=== PATIENT | female | born 1960 | race Caucasian/White ===

== ENCOUNTER 2018-02-19 14:25 | Emergency (ER) | payer OTHER ==
[~2018-02-19] VITALS: Ht 162.6 cm; Wt 86.2 kg
[~2018-02-19 14:25] MED LIST: AMOX1TAB12 PO; CIPRO500 MG PO; ELAVIL; HYZAAR 50-12.1 UDTAB; KETO10TA2 PO; LEVOXYL150 MCG; MECLIZINE HCL25 MG PO; MEDROLPACK PO; NEURONTIN800 MG PO; ORPH100T PO; PERCOCET 5/321 UDTAB PO; PERCOCET 5/3251 TAB PO; SYNTHROID88 MCG; TAMS0.4C PO; TUSNEL LIQUID178 ML PO
== END 2018-02-19 17:29 | disposition home or self-care (01) ==
LOC: ER 14:25
DX: R42 Dizziness and giddiness (principal); T39.2X5A Adverse effect of pyrazolone derivatives, initial encounter; Y92.89 Other specified places as the place of occurrence of the external cause

== ENCOUNTER 2018-02-23 17:37 | Emergency (ER) | payer OTHER ==
[~2018-02-23] VITALS: Ht 162.6 cm; Wt 86.2 kg
[2018-02-23] MEDS ORDERED: SKELAXIN800 MG PO (20:03)
[2018-02-23] MEDS ORDERED: CELEBREX100 MG PO (20:03)
== END 2018-02-23 20:08 | disposition home or self-care (01) ==
LOC: ER 17:37
DX: M54.5 Low back pain (principal)

== ENCOUNTER 2018-06-09 12:35 | Emergency (ER) | payer OTHER ==
[~2018-06-09] VITALS: Ht 162.6 cm; Wt 90.7 kg
[~2018-06-09 12:35] MED LIST changes: +CELEBREX100 MG PO; +SKELAXIN800 MG PO
[2018-06-09] MEDS ORDERED: MEDROLPACK PO (16:35)
[2018-06-09] MEDS ORDERED: KETO10TA2 PO (16:35)
[2018-06-09] MEDS ORDERED: TESSALON PERLE100 M1 PO (16:35)
[2018-06-09] MEDS ORDERED: LEVALBUTER1.25 MG/3 IH (16:35)
== END 2018-06-09 17:23 | disposition home or self-care (01) ==
LOC: ER 12:35
DX: J45.998 Other asthma (principal)

== ENCOUNTER 2018-08-06 11:00 | Emergency (ER) | payer OTHER ==
[~2018-08-06] VITALS: Ht 162.6 cm; Wt 86.2 kg
[~2018-08-06 11:00] MED LIST changes: +LEVALBUTER1.25 MG/3 IH; +TESSALON PERLE100 M1 PO
== END 2018-08-06 16:30 | disposition home or self-care (01) ==
LOC: ER 11:00
DX: J40 Bronchitis, not specified as acute or chronic (principal); J10.1 Influenza due to other identified influenza virus with other respiratory manifestations

== ENCOUNTER 2018-08-29 15:19 | Emergency (ER) | payer OTHER ==
[~2018-08-29] VITALS: Ht 162.6 cm; Wt 86.2 kg
== END 2018-08-29 18:17 | disposition home or self-care (01) ==
LOC: ER 15:19
DX: J06.9 Acute upper respiratory infection, unspecified (principal); N64.59 Other signs and symptoms in breast

== ENCOUNTER 2018-10-17 04:54 | Emergency (ER) | payer OTHER ==
[~2018-10-17] VITALS: Ht 162.6 cm; Wt 88.5 kg
== END 2018-10-17 13:59 | disposition home or self-care (01) ==
LOC: ER 04:54
DX: M54.6 Pain in thoracic spine (principal)

== ENCOUNTER 2018-11-04 18:54 | Emergency (ER) | payer OTHER ==
[~2018-11-04] VITALS: Ht 162.6 cm; Wt 86.2 kg
== END 2018-11-05 02:13 | disposition home or self-care (01) ==
LOC: ER 18:54 → CPU-OBS 19:22 → ER 19:22
DX: R07.89 Other chest pain (principal)
CPT/HCPCS: G0378; G0379; 93005

== ENCOUNTER 2018-11-06 16:50 | Emergency (ER) | payer OTHER ==
[~2018-11-06] VITALS: Ht 162.6 cm; Wt 86.2 kg
== END 2018-11-06 19:29 | disposition home or self-care (01) ==
LOC: ER 16:50
DX: R07.89 Other chest pain (principal); M94.0 Chondrocostal junction syndrome [Tietze]

== ENCOUNTER 2019-04-24 09:35 | Emergency (ER) | payer OTHER ==
[~2019-04-24] VITALS: Ht 157.5 cm; Wt 86.2 kg
== END 2019-04-24 13:21 | disposition home or self-care (01) ==
LOC: ER 09:35
DX: B34.9 Viral infection, unspecified (principal); M54.89 Other dorsalgia

== ENCOUNTER 2019-07-21 08:23 | Emergency (ER) | payer OTHER ==
[~2019-07-21] VITALS: Ht 175.3 cm; Wt 86.2 kg
[2019-07-21] MEDS ORDERED: FORTAMET500 MG (08:29)
== END 2019-07-21 12:24 | disposition home or self-care (01) ==
LOC: ER 08:23
DX: S13.4XXA Sprain of ligaments of cervical spine, initial encounter (principal); M62.838 Other muscle spasm; V49.9XXA Car occupant (driver) (passenger) injured in unspecified traffic accident, initial encounter; Y93.89 Activity, other specified; Y92.488 Other paved roadways as the place of occurrence of the external cause; Y99.8 Other external cause status

== ENCOUNTER 2020-04-04 15:21 | Emergency (ER) | payer OTHER ==
[~2020-04-04] VITALS: Ht 162.6 cm; Wt 97.5 kg
[~2020-04-04 15:21] MED LIST changes: +FORTAMET500 MG
[2020-04-05] MEDS ORDERED: ZITHROMAX500 MG PO (00:45)
[2020-04-05] MEDS ORDERED: ALLEGRA ALLERG180 MG PO (00:45)
[2020-04-05] MEDS ORDERED: TUSNEL LIQUID178 ML PO (00:45)
== END 2020-04-05 01:36 | disposition home or self-care (01) ==
LOC: ER 15:21
DX: B34.9 Viral infection, unspecified (principal); Z20.828 Contact with and (suspected) exposure to other viral communicable diseases

== ENCOUNTER 2021-02-02 14:23 | Emergency (ER) | payer OTHER ==
[~2021-02-02] VITALS: Ht 162.6 cm; Wt 86.2 kg
[~2021-02-02 14:23] MED LIST changes: +ALLEGRA ALLERG180 MG PO; +ZITHROMAX500 MG PO
== END 2021-02-02 18:45 | disposition home or self-care (01) ==
LOC: ER 14:23
DX: L03.012 Cellulitis of left finger (principal); S61.22 Laceration with foreign body of finger without damage to nail; W45.8XXD Other foreign body or object entering through skin, subsequent encounter

== ENCOUNTER 2021-03-06 06:41 | Emergency (ER) | payer OTHER ==
[~2021-03-06] VITALS: Ht 162.6 cm; Wt 88.9 kg
[2021-03-06] MEDS ORDERED: NORFLEX100MG PO (12:36)
[2021-03-06] MEDS ORDERED: LEVOFLOXACIN500 MG PO (12:36)
[2021-03-06] MEDS ORDERED: TESSALON PERLE100 M1 PO (12:36)
== END 2021-03-06 13:43 | disposition home or self-care (01) ==
LOC: ER 06:41
DX: B34.9 Viral infection, unspecified (principal); B96.0 Mycoplasma pneumoniae [M. pneumoniae] as the cause of diseases classified elsewhere; Z11.52 Encounter for screening for COVID-19

== ENCOUNTER 2021-06-07 16:35 | Emergency (ER) | payer OTHER ==
[~2021-06-07] VITALS: Ht 162.6 cm; Wt 86.2 kg
[~2021-06-07 16:35] MED LIST changes: +LEVOFLOXACIN500 MG PO; +NORFLEX100MG PO
[2021-06-07] MEDS ORDERED: KETO10TA2 PO (19:01)
[2021-06-07] MEDS ORDERED: NORFLEX100MG PO (19:01)
== END 2021-06-07 19:08 | disposition home or self-care (01) ==
LOC: ER 16:35
DX: S20.222A Contusion of left back wall of thorax, initial encounter (principal); S40.012A Contusion of left shoulder, initial encounter; M54.6 Pain in thoracic spine; W01.198A Fall on same level from slipping, tripping and stumbling with subsequent striking against other object, initial encounter; Y93.01 Activity, walking, marching and hiking; Y92.018 Other place in single-family (private) house as the place of occurrence of the external cause; Y99.8 Other external cause status

== ENCOUNTER 2021-12-08 06:22 | Emergency (ER) | payer OTHER ==
[~2021-12-08] VITALS: Ht 162.6 cm; Wt 86.2 kg
== END 2021-12-08 13:37 | disposition home or self-care (01) ==
LOC: ER 06:22
DX: R05.9 Cough, unspecified (principal); I10 Essential (primary) hypertension; E11.9 Type 2 diabetes mellitus without complications; Z79.84 Long term (current) use of oral hypoglycemic drugs; Z20.822 Contact with and (suspected) exposure to COVID-19

== ENCOUNTER 2022-04-05 09:53 | Inpatient (IN) | payer OTHER ==
[~2022-04-05] VITALS: Ht 162.6 cm; Wt 86.2 kg
[2022-04-05] MEDS ORDERED: ATORVASTATIN CA40 MG PO (10:38)
[2022-04-05] MEDS ORDERED: PANTOPRAZOLE SO40 MG PO (10:39)
[2022-04-05] MEDS ORDERED: PERCOCET 5-3251 EACH (10:39)
--- NOTE | 2022-04-05 10:39 | NUR ---
PTE REFIERE DOLOR EN EL CUERPO DESDE HACE VARIOS JOHNSON Y DOLOR DE BRANDY.
--- NOTE | 2022-04-05 11:27 | NUR ---
FEMINA DE 61 Y/O ES EVALUADA POR LA GERALDINE. KERN EL CUAL EMITE ORDEN MEDICA, SE EJECUTA ORDEN MEDICA EN HECTOR TOTALIDAD, SE IMKE ORIENTACION A PACIENTE SOBRE HECTOR TRATAMIENTO Y VERBALIZA ENTENDER Y ACEPTA. PENDIENTE A RESULTADOS PARA REEVALUACION MEDICA.
--- NOTE | 2022-04-05 15:06 | NUR ---
PACIENTE FEMENINA DE 61Y/O ES REEVALUADAPORLA .KERN, SE EJECUTA ORDEN MEDICA Y SE UBICA EN OBS #6, SE MARLO MUESTRAS DE CULTIVOS DE [place] Y SE ENTREGA MUESTRA PARA COLECTAR U/C. PENDIENTE A CONSULTA CON MEDICINA INTERNA.
[2022-04-07] MEDS ORDERED: AMITRIPTYLINE100 MG (10:43)
[2022-04-07] MEDS ORDERED: LOSARTAN POTAS100 MG (10:44)
[2022-04-07] MEDS ORDERED: OMEPRAZOLE40 MG (10:44)
[2022-04-07] MEDS ORDERED: NAPROXEN500 MG (10:44)
[2022-04-07] MEDS ORDERED: FAMOTIDINE40 MG (10:44)
[2022-04-07] MEDS ORDERED: CLOTRIMAZOLE-BE15 G1 (10:44)
== END 2022-04-08 20:11 | disposition home or self-care (01) | DRG 684 ==
LOC: ER 09:53 → MEDJ 04-06 00:04 → MEDI 04-07 16:56
PROVIDERS: ADMIT Internal Medicine; ATTEND Internal Medicine
DX: N17.8 Other acute kidney failure (principal); E86.0 Dehydration; I10 Essential (primary) hypertension; E03.8 Other specified hypothyroidism; E66.01 Morbid (severe) obesity due to excess calories; E87.8 Other disorders of electrolyte and fluid balance, not elsewhere classified; Z20.822 Contact with and (suspected) exposure to COVID-19; E11.9 Type 2 diabetes mellitus without complications; Z79.84 Long term (current) use of oral hypoglycemic drugs; G43.909 Migraine, unspecified, not intractable, without status migrainosus

== ENCOUNTER 2022-05-25 08:04 | Inpatient (IN) | payer OTHER ==
[~2022-05-25] VITALS: Ht 162.6 cm; Wt 113.4 kg
[~2022-05-25 08:04] MED LIST changes: +AMITRIPTYLINE100 MG; +ATORVASTATIN CA40 MG PO; +CLOTRIMAZOLE-BE15 G1; +FAMOTIDINE40 MG; +LOSARTAN POTAS100 MG; +NAPROXEN500 MG; +OMEPRAZOLE40 MG; +PANTOPRAZOLE SO40 MG PO; +PERCOCET 5-3251 EACH
[2022-05-25] MEDS ORDERED: PEPCID AC20 MG PO (08:23)
[2022-05-25] MEDS ORDERED: LEVOXYL150 MCG PO (08:25)
--- NOTE | 2022-05-25 08:27 | NUR ---
PTE SE RECIBE AMBULANDO, ALERTA Y ORIENTADA X 3. PTE VERBALIZA TENER FATIGA, TOS CON FLEMA Y DOLOR EN LA ESPALDA BAJA LADO DERECHO.
--- NOTE | 2022-05-25 08:52 | NUR ---
PTE CON BONNIEO
--- NOTE | 2022-05-25 09:11 | NUR ---
PACIENTE FEMENINA ALERTA Y ORIENTADA X3, SE COLOCA EN GUERRERO #1 CON BARRANDAS ELEVADAS. SE COLOCA EN MONITOR CARDIACO Y OXIMETRIA DE PULSO. SE LE MARLO LAS MUETRAS, SE CANALIZA EN BRAZO JANES Y SE LE COLOCA ANGIO #20 EN BRAZO JANES CON S/L PATENTE JEREMIAH DE EDEMA Y ENROJECIMIENTO, ELICEO LAS ORDENES MEDICAS. SE OBSERVA POR CAMBIOS.
--- NOTE | 2022-05-25 14:37 | NUR ---
VILLEDA ORDENA MEDICAMETOS PARA ESTUDIO DE CT IV. SE PREP[VANIA MEDICAMENTO Y RN LONGORIA ADMINISTRA MEDICAMENTO ELICEO ORDEN MEDICA UTILIZANDO MEDIDAS ASEPTICAS.
--- NOTE | 2022-05-25 15:47 | NUR ---
SE RECIBE PTE FEMENINA ALERTA Y ORIENTADA X3,CONECTADA A MONITOR CARDIACO JEANNA Y OXIMETRIA CONTINUA,LLEGA DE SER REALIZADO CT,SE REALIZAN S/V, SE MANTIENE CON H/L PATENTE AREA JEREMIAH DE EDEMA Y ENROJECIMIENTO,SE REALIZA DXT(103),SE MANTIENE A PTE EN VIGI;LANCIA JEANNA POR CAMBIOS.
== END 2022-06-01 20:05 | disposition home or self-care (01) | DRG 177 ==
LOC: ER 08:04 → MEDI 18:24 → MEDJ 05-26 14:27
PROVIDERS: ADMIT Internal Medicine; ATTEND Internal Medicine
PROC: BW24YZZ Computerized Tomography (CT Scan) of Chest and Abdomen using Other Contrast (ICD-10-PCS; principal; 2022-05-26)
PROC: 4A12X4Z Monitoring of Cardiac Electrical Activity, External Approach (ICD-10-PCS; 2022-05-26)
PROC: 5A09357 Assistance with Respiratory Ventilation, Less than 24 Consecutive Hours, Continuous Positive Airway Pressure (ICD-10-PCS; 2022-05-31)
DX: J15.211 Pneumonia due to Methicillin susceptible Staphylococcus aureus (principal); J96.02 Acute respiratory failure with hypercapnia; J44.0 Chronic obstructive pulmonary disease with (acute) lower respiratory infection; J67.9 Hypersensitivity pneumonitis due to unspecified organic dust; G47.33 Obstructive sleep apnea (adult) (pediatric); E11.9 Type 2 diabetes mellitus without complications; Z79.4 Long term (current) use of insulin; E03.9 Hypothyroidism, unspecified; E66.01 Morbid (severe) obesity due to excess calories; Z20.822 Contact with and (suspected) exposure to COVID-19; F17.200 Nicotine dependence, unspecified, uncomplicated

== ENCOUNTER 2023-03-12 10:38 | Emergency (ER) | payer OTHER ==
[~2023-03-12] VITALS: Ht 157.5 cm; Wt 86.2 kg
[~2023-03-12 10:38] MED LIST changes: +LEVOXYL150 MCG PO; +PEPCID AC20 MG PO
[2023-03-12] MEDS ORDERED: BUTALB-ACETAMI1 EAC2 PO (11:30)
[2023-03-12] MEDS ORDERED: ADVIL DUAL ACT1 EACH PO (16:28)
[2023-03-12] MEDS ORDERED: MEDROLPACK PO (16:28)
== END 2023-03-12 17:05 | disposition home or self-care (01) ==
LOC: ER 10:38
DX: M54.89 Other dorsalgia (principal); M19.90 Unspecified osteoarthritis, unspecified site; J44.9 Chronic obstructive pulmonary disease, unspecified

== ENCOUNTER 2023-04-29 06:37 | Emergency (ER) | payer OTHER ==
[~2023-04-29] VITALS: Ht 162.6 cm; Wt 90.3 kg
[~2023-04-29 06:37] MED LIST changes: +ADVIL DUAL ACT1 EACH PO; +BUTALB-ACETAMI1 EAC2 PO
== END 2023-04-29 12:17 | disposition home or self-care (01) ==
LOC: ER 06:37
PROVIDERS: General Practice
DX: M62.838 Other muscle spasm (principal); R51.9 Headache, unspecified; I10 Essential (primary) hypertension; E03.8 Other specified hypothyroidism; E11.9 Type 2 diabetes mellitus without complications; Z79.84 Long term (current) use of oral hypoglycemic drugs
CPT/HCPCS: 36415; 72040; 72100; 96365; 96372; 99283; J1100; J1885

== ENCOUNTER 2024-05-09 09:39 | Emergency (ER) | payer OTHER ==
[~2024-05-09] VITALS: Ht 162.6 cm; Wt 96.2 kg
[2024-05-09] MEDS ORDERED: KETOROLAC TROMETHAMINE 60 MG VIAL IM STA (10:37)
[2024-05-09] MEDS ORDERED: KETOROLAC TROMETHAMINE 60 MG VIAL IM ONE ×3 (10:43→15:15)
[2024-05-09 11:01] LABS: HEMATOCRIT 37.5 % (36.0-45.00); HEMOGLOBIN 12.6 g/dL (12.0-15.00); MEAN CELL VOLUME 88.2 fL (80.00-100.00); MEAN CORPUSCULAR HEMOGLOBIN 29.7 pg (27.00-32.0); MEAN CORPUSCULAR HGB CONC 33.7 g/dl (32.0-36.0); PLATELET COUNT 254 K/uL (150-450); RED BLOOD COUNT 4.25 M/uL (4.00-6.00); RED CELL DISTRIBUTION WIDTH 12.9 % (11.5-14.5)
[2024-05-09 11:20] LABS: PH,URINE 5.5 (5.0-8.0); URINE APPEARANCE Clear; URINE BILIRRUBIN Negative (NEGATIVE); URINE BLOOD Negative; URINE COLOR Yellow; URINE GLUCOSE Negative (NEGATIVE); URINE KETONE Negative (NEGATIVE); URINE LEUKOCYTE Moderate; URINE NITRATE Negative; URINE PROTEIN Trace (NEGATIVE)
[2024-05-09 11:21] LABS: URINE EPITHELIAL CELLS 40.4 uL (0.0-38.8); URINE RBC 9.7 uL (0.0-20.8); URINE WBC 80.6 uL (0.0-23.2)
[2024-05-09 11:42] LABS: URINE CAST 0.45 uL (0.0-1.40)
[2024-05-09 12:35] LABS: ALBUMIN 3.5 gm/dL (3.4-5.0); ALKALINE PHOSPHATASE 128 U/L (50-136); ALT/SGPT 45 U/L (12-78); ANION GAP 5 (10.0-20.0); AST/SGOT 32 U/L (15-37); BILIRUBIN TOTAL 0.28 mg/dL (0.3-1.2); BILIRUBIN,CONJUGATED < 0.10 mg/dL (0.0-0.2); BILIRUBIN,UNCONJUGATED 0.18 mg/dL (0.0-0.6); BLOOD UREA NITROGEN 24 mg/dL (7-18); BUN CREA RATIO 32 (7.0-25.0); CALCIUM 9.4 mg/dL (8.5-10.1); CARBON DIOXIDE 35 mEq/L (21-32); CHLORIDE 106 mmol/L (98-107); CREATININE SERUM 0.75 mg/dL (0.55-1.02); GFR 78.05; GLUCOSE FASTING 67 mg/dL (65-100); OSMOLALITY SERUM 285 MOSM/KG (275-295); POTASSIUM 3.83 mEq/L (3.5-5.1); SODIUM 142 mmol/L (136-145); TOTAL PROTEIN 8.2 gm/dL (6.4-8.2)
== END 2024-05-09 15:18 | disposition home or self-care (01) ==
LOC: ER 09:40
PROVIDERS: General Practice
DX: N20.0 Calculus of kidney (principal); E03.8 Other specified hypothyroidism; E11.9 Type 2 diabetes mellitus without complications; I88.8 Other nonspecific lymphadenitis
CPT/HCPCS: 36415; 96372; 99284; J1885

== ENCOUNTER 2024-05-14 07:31 | Emergency (ER) | payer OTHER ==
[~2024-05-14] VITALS: Ht 162.6 cm; Wt 95.7 kg
[2024-05-14] MEDS ORDERED: TAMSULOSIN HCL 0.4 MG CAP PO ONE ×2 (08:30→08:45)
[2024-05-14] MEDS ORDERED: KETOROLAC TROMETHAMINE 60 MG VIAL IM ONE ×2 (08:30→08:45)
== END 2024-05-14 09:10 | disposition home or self-care (01) ==
LOC: ER 07:32
DX: M54.50 Low back pain, unspecified (principal); E03.8 Other specified hypothyroidism; E78.00 Pure hypercholesterolemia, unspecified
CPT/HCPCS: 96372; 99282; J1885

== ENCOUNTER 2024-05-25 06:35 | Emergency (ER) | payer OTHER ==
[~2024-05-25] VITALS: Ht 162.6 cm; Wt 95.3 kg
[2024-05-25] MEDS ORDERED: TRIAMCINOLONE ACETONIDE 40 MG/ML VIAL IJ STA (08:21)
[2024-05-25] MEDS ORDERED: KETOROLAC TROMETHAMINE 60 MG VIAL IM STA (08:22)
[2024-05-25] MEDS ORDERED: KETOROLAC TROMETHAMINE 60 MG VIAL IM ONE (08:27)
[2024-05-25] MEDS ORDERED: TRIAMCINOLONE ACETONIDE 40 MG/ML VIAL ONE (08:28)
[2024-05-25] MEDS ORDERED: LIDOCAINE HCL 1% 10ML VIAL ONE (08:30)
[2024-05-25 08:52] LABS: HEMATOCRIT 34.8 % (36.0-45.00); HEMOGLOBIN 11.8 g/dL (12.0-15.00); MEAN CELL VOLUME 86.1 fL (80.00-100.00); MEAN CORPUSCULAR HEMOGLOBIN 29.2 pg (27.00-32.0); MEAN CORPUSCULAR HGB CONC 33.9 g/dl (32.0-36.0); PLATELET COUNT 281 K/uL (150-450); RED BLOOD COUNT 4.04 M/uL (4.00-6.00); RED CELL DISTRIBUTION WIDTH 13.4 % (11.5-14.5)
[2024-05-25] MEDS ORDERED: POVIDONE-IODINE 118 ML BOTT TOP ONE (09:02)
== END 2024-05-25 10:30 | disposition home or self-care (01) ==
LOC: ER 06:36
PROVIDERS: General Practice
DX: M77.8 Other enthesopathies, not elsewhere classified (principal); N23 Unspecified renal colic; I10 Essential (primary) hypertension
CPT/HCPCS: 36415; 73020; 96365; 99283; J1885

== ENCOUNTER 2024-06-15 07:40 | Emergency (ER) | payer OTHER ==
[~2024-06-15] VITALS: Ht 162.6 cm; Wt 94.3 kg
[2024-06-15] MEDS ORDERED: KETOROLAC TROMETHAMINE 60 MG VIAL IM STA (08:25)
[2024-06-15 09:52] LABS: HEMATOCRIT 36.5 % (36.0-45.00); HEMOGLOBIN 12.2 g/dL (12.0-15.00); MEAN CELL VOLUME 89.5 fL (80.00-100.00); MEAN CORPUSCULAR HEMOGLOBIN 29.9 pg (27.00-32.0); MEAN CORPUSCULAR HGB CONC 33.4 g/dl (32.0-36.0); PLATELET COUNT 259 K/uL (150-450); RED BLOOD COUNT 4.08 M/uL (4.00-6.00); RED CELL DISTRIBUTION WIDTH 13.2 % (11.5-14.5)
[2024-06-15 09:58] LABS: CALCIUM 9.2 mg/dL (8.5-10.1); CREATININE SERUM 0.96 mg/dL (0.55-1.02); GFR 58.7; POTASSIUM 3.45 mEq/L (3.5-5.1)
[2024-06-15 12:58] LABS: PH,URINE 5.5 (5.0-8.0); URINE APPEARANCE Cloudy; URINE BILIRRUBIN Small (NEGATIVE); URINE BLOOD Negative; URINE COLOR Dark Yellow; URINE GLUCOSE Negative (NEGATIVE); URINE KETONE 15 (NEGATIVE); URINE LEUKOCYTE Small; URINE NITRATE Negative; URINE PROTEIN 30 (NEGATIVE)
[2024-06-15 13:02] LABS: URINE EPITHELIAL CELLS 59.8 uL (0.0-38.8); URINE RBC 24.8 uL (0.0-20.8); URINE WBC 95.5 uL (0.0-23.2)
[2024-06-15 13:27] LABS: URINE CAST 0.61 uL (0.0-1.40)
[2024-06-15 13:28] LABS: URINE CRYSTALS MANY /HPF
[2024-06-15 13:29] LABS: URINE MUCUS HEAVY
== END 2024-06-15 15:43 | disposition home or self-care (01) ==
LOC: ER 07:40
PROVIDERS: General Practice
DX: M54.9 Dorsalgia, unspecified (principal); I10 Essential (primary) hypertension; N20.0 Calculus of kidney
CPT/HCPCS: 36415; 74176; 96372; 99284; J1885

== ENCOUNTER 2024-11-08 10:29 | Emergency (ER) | payer OTHER ==
[~2024-11-08] VITALS: Ht 162.6 cm; Wt 90.7 kg
[~2024-11-08 10:29] MED LIST changes: +DICLOFENAC POTA50 MG PO; +VOLTAREN ARTHRI20 GM TOP
[2024-11-08 10:52] VITALS: BP 103/62; O2SAT 98
[2024-11-08] MEDS ORDERED: OZEMPIC2 MG/0.75 SQ (10:56)
[2024-11-08] MEDS ORDERED: 0.9 % SODIUM CHLORIDE 1,000 ML IV SCH (11:30)
[2024-11-08] MEDS ORDERED: TAMSULOSIN HCL 0.4 MG CAP PO ONE (11:30)
[2024-11-08] MEDS ORDERED: KETOROLAC TROMETHAMINE 30 MG VIAL IV ONE (11:30)
[2024-11-08 11:54] LABS: HEMATOCRIT 35.8 % (36.0-45.00); MEAN CELL VOLUME 88.8 fL (80.00-100.00); MEAN CORPUSCULAR HEMOGLOBIN 29.8 pg (27.00-32.0); MEAN CORPUSCULAR HGB CONC 33.6 g/dl (32.0-36.0); PLATELET COUNT 251 K/uL (150-450); RED BLOOD COUNT 4.03 M/uL (4.00-6.00); RED CELL DISTRIBUTION WIDTH 13.2 % (11.5-14.5)
[2024-11-08 14:25] LABS: PH,URINE 5.5 (5.0-8.0); URINE APPEARANCE Cloudy; URINE BILIRRUBIN Small (NEGATIVE); URINE BLOOD Negative; URINE COLOR Dark Yellow; URINE GLUCOSE Negative (NEGATIVE); URINE KETONE Trace (NEGATIVE); URINE LEUKOCYTE Moderate; URINE NITRATE Negative; URINE PROTEIN Trace (NEGATIVE)
[2024-11-08 14:44] LABS: URINE RBC 105.1 uL (0.0-20.8); URINE WBC 22.7 uL (0.0-23.2)
[2024-11-08 15:02] LABS: URINE CAST 0.73 uL (0.0-1.40)
[2024-11-08 15:03] LABS: URINE CRYSTALS MANY /HPF; URINE MUCUS MODERATE
[2024-11-08] MEDS ORDERED: MORPHINE SULFATE 4 MG/ML VIAL IV ONE (16:00)
== END 2024-11-08 16:51 | disposition home or self-care (01) ==
LOC: ER 10:32
PROVIDERS: Emergency Medicine
DX: R10.9 Unspecified abdominal pain (principal); I10 Essential (primary) hypertension; E11.9 Type 2 diabetes mellitus without complications; Z79.4 Long term (current) use of insulin; N20.0 Calculus of kidney
CPT/HCPCS: 36415; 74176; 96365; 96366; 99284; J1885; J2270; J7030

== ENCOUNTER 2025-04-15 11:35 | Emergency (ER) | payer OTHER ==
[~2025-04-15] VITALS: Ht 162.6 cm; Wt 79.8 kg
[~2025-04-15 11:35] MED LIST changes: +OZEMPIC2 MG/0.75 SQ
[2025-04-15 12:06] VITALS: BP 99/68
[2025-04-15] MEDS ORDERED: KETOROLAC TROMETHAMINE 60 MG VIAL IM ONE (13:00)
[2025-04-15 14:24] VITALS: O2SAT 100
== END 2025-04-15 14:25 | disposition home or self-care (01) ==
LOC: ER 11:35
DX: M25.532 Pain in left wrist (principal); M25.531 Pain in right wrist; E03.8 Other specified hypothyroidism; I10 Essential (primary) hypertension

== ENCOUNTER → 2025-06-22 | Emergency (ER) | payer OTHER ==
[~2025-06-22] VITALS: Ht 162.6 cm; Wt 85.3 kg
[~2025-06-22] MED LIST changes: +8HR ARTHRITIS650 M1 PO; +ACETAMINOPHEN 500 MG GEL..CAP PO ONE; +DEXAMETHASONE SODIUM PHOSPHATE 4 MG/ML VIAL IM ONE; +DEXAMETHASONE SODIUM PHOSPHATE 4 MG/ML VIAL ONE; +KETOROLAC TROMETHAMINE 60 MG VIAL IM ONE; +OSEL75CA PO
[2025-06-22 14:24] LABS: BASO % 0.5 % (0.1-1.2); EOS # 0.10 (0.04-0.54); EOS % 1.3 % (0.7-7.0); LYMPH # 2.26 (1.18-3.74); LYMPH % 28.8 % (19.3-53.1); MEAN PLATELET VOLUME 9.00 fl (9.4-12.4); MONO # 0.59 (0.24-0.82); MONO % 7.5 % (4.7-12.5); NEUT # 4.83 (1.56-6.13); NEUT % 61.6 % (34.0-71.1); RED CELL DISTRIBUTION WIDTH 12.4 % (11.6-14.4)
[2025-06-22 14:27] LABS: URINE APPEARANCE Cloudy; URINE BILIRRUBIN Negative (NEGATIVE); URINE BLOOD Negative; URINE COLOR Yellow; URINE GLUCOSE Negative (NEGATIVE); URINE KETONE Trace (NEGATIVE); URINE LEUKOCYTE Moderate; URINE NITRATE Negative; URINE PROTEIN Negative (NEGATIVE); URINE UROBILINOGEN 0.2 E.U./dl
[2025-06-22 14:32] LABS: URINE BACTERIA 1437.4 uL (0.0-1933); URINE EPITHELIAL CELLS 82.4 uL (0.0-38.8); URINE RBC 14.3 uL (0.0-20.8); URINE WBC 141.6 uL (0.0-23.2)
[2025-06-22 14:40] LABS: COVID-19 AG NEGATIVE (NEGATIVE)
[2025-06-22 15:02] LABS: ALT/SGPT 33.0 U/L (12-78); AST/SGOT 21.0 U/L (15-37); BILIRUBIN TOTAL 0.2 mg/dL (0.3-1.2); BUN CREA RATIO 29.0 (7.0-25.0); CREATININE SERUM 0.68 mg/dL (0.55-1.02); GFR 87.11; GLOBULINA 3.7 G/DL (2.4-3.5); GLUCOSE FASTING 92.0 mg/dL (65-100); OSMOLALITY SERUM 287.0 MOSM/KG (275-295)
[2025-06-22 15:09] LABS: URINE CAST 0.43 uL (0.0-1.40)
[2025-06-22 15:10] LABS: URINE MUCUS MODERATE
== END | disposition home or self-care (01) ==
LOC: ER 11:52
DX: J10.1 Influenza due to other identified influenza virus with other respiratory manifestations (principal); J45.909 Unspecified asthma, uncomplicated; I10 Essential (primary) hypertension; G43.909 Migraine, unspecified, not intractable, without status migrainosus; E07.89 Other specified disorders of thyroid